=== PATIENT | male | born 1945 | race Caucasian/White ===

== ENCOUNTER 2018-03-05 06:43 | Day surgery (SDC) | payer OTHER ==
[~2018-03-05 06:43] MED LIST: B-12500 MCG PO; METFORMIN HCL850 MG PO; SIMVASTATIN10 MG PO; VASOTEC5 MG PO
== END 2018-03-05 17:30 | disposition home or self-care (01) ==
LOC: CIR.AMB 06:43
DX: S52.532A Colles' fracture of left radius, initial encounter for closed fracture (principal)
CPT/HCPCS: 25609; 25280; 25118; C1776